=== PATIENT | male | born 1960 | race Caucasian/White ===

== ENCOUNTER 2018-01-24 18:41 | Emergency (ER) | payer MEDICAID ==
[2018-01-24] MEDS ORDERED: ASPIRIN 81 MG CHEWABLE TAB PO ONE (19:07)
--- NOTE | 2018-01-24 19:09 | CPEKG ---
Heart Rate: 57 RR Interval: 1053 P-R Interval: 144 QRSD Interval: 74 QT Interval: 420 QTC Interval: 409 P Chilo: 43 QRS Chilo: 69 T Wave Chilo: 44 EKG Severity - NORMAL ECG - EKG Impression: SINUS RHYTHM EKG Impression: Normal EKG, no acute findings. Electronically Signed By: Gracia Arredondo 24-Jan-2018 20:08:07
--- NOTE | 2018-01-24 19:37 | EDPHY ---
H & P Time Seen by Provider: 01/24/18 18:49 HPI/ROS: CHIEF COMPLAINT: Chest pain HISTORY OF PRESENT ILLNESS: Patient states he had chest pain which he 1st felt around 10 30 this morning. He was in bed reading at the time when it started. The chest pain was to the left chest and is described as a squeezing sensation. It lasted 3-4 seconds, it was sudden in onset, and it was most intense the 1st time he experience it. He states that was about 5 to 6/10 when it 1st started. He states over the course of the rest of the day it came back 3 times "at least". Each time with similar in that they were sudden, sharp, resolved after a few seconds. He states last time he felt this was 45 min ago. He denies any shortness of breath, nausea, vomiting, diaphoresis. There is no radiation of the pain. He has had no exercise intolerance. He has had no leg swelling. Pain was not associated with exertion. He has had no dizziness or syncope. REVIEW OF SYSTEMS: Constitutional: No fever, no chills. Eyes: No discharge. ENT: No sore throat. Cardiovascular: No chest pain, no palpitations. Respiratory: No cough, no shortness of breath. Gastrointestinal: No abdominal pain, no vomiting. Genitourinary: No dysuria. Musculoskeletal: No back pain. Skin: No rashes. Neurological: No headache. General Appearance: Alert, no distress. Eyes: Pupils equal and round no pallor or injection. ENT, Mouth: Mucous membranes moist. Respiratory: There are no retractions, lungs are clear to auscultation. Cardiovascular: Regular rate and rhythm. Normal femoral pulses. Gastrointestinal: Abdomen is soft and nontender, no masses, bowel sounds normal. Neurological: No neurologic deficits, awake alert. Skin: Warm and dry, no rashes. Musculoskeletal: Neck is supple nontender. Extremities are symmetrical, full range of motion, no edema. Psychiatric: Patient is oriented X 3, there is no agitation. Medical/surgical history: Epilepsy, hernia surgery. Social history: No smoking, no alcohol. No family history of coronary artery disease. Smoking Status: Never smoked Constitutional: Initial Vital Signs Temperature (C) 36.7 C 01/24/18 18:49 Heart Rate 65 01/24/18 18:49 Respiratory Rate 18 01/24/18 18:49 Blood Pressure 107/70 07/08/18 18:49 O2 Sat (%) 93 01/24/18 18:49 O2 Delivery Mode Room Air Allergies/Adverse Reactions: No Known Allergies Allergy (Verified 01/24/18 18:52) Home Medications: Medication Instructions Recorded Tegretol 01/17/15 Medical Decision Making - Diagnostics EKG Interpretation: Normal EKG see trace master for details Imaging Results: Imaging Impressions Chest X-Ray 01/24/18 19:07 Impression: 1. No active cardiopulmonary disease seen. Imaging: I viewed and interpreted images myself ED Course/Re-evaluation: 8:10 p.m. Re-evaluation patient comfortable, no chest pain. Discussed heart score and rule out in shared decision making conversation. Patient agreeable to stay in ED for repeat troponin. Also discussed the importance of prompt follow-up. Differential Diagnosis: Differential diagnosis includes but is not limited to acute coronary syndrome, pneumonia, musculoskeletal chest pain, pleurisy. After evaluation unclear cause of patient's intermittent brief chest pain. No evidence of pneumonia, hypoxia, no risk factors for pulmonary embolism, asymptomatic during his visit in the emergency department. Patient with heart score of 1 and low risk. Serial troponins negative. EKG unremarkable. Patient understands the importance of follow-up after initial evaluation in the emergency department. Discussed return precautions in detail. Stable for discharge. - Data Points Laboratory Results: 01/24/18 01/24/18 19:29 19:28 POC Sodium 139 mEq/L mEq/L (135-145) POC Potassium 3.9 mEq/L mEq/L (3.3-5.0) POC Chloride 100.0 mEq/L mEq/L (97-110) POC Total CO2 27 mEq/L mEq/L (22-31) POC BUN 8 mg/dL mg/dL (7-23) POC Creatinine 1.3 mg/dL mg/dL (0.7-1.3) POC Glucose 86 mg/dL mg/dL (70-100) POC Calcium 9.3 mg/dL mg/dL (8.5-10.4) POC Total Bilirubin 0.7 mg/dL mg/dL (0.1-1.4) POC AST 22 IU/L IU/L (17-59) POC ALT 17 IU/L L IU/L (21-72) POC Alk Phosphatase 56 IU/L IU/L (38-126) POC Troponin I 0.00 ng/mL ng/mL (0.00-0.08) POC Total Protein 6.5 g/dL g/dL (6.3-8.2) POC Albumin 3.8 g/dL g/dL (3.5-5.0) Medications Given: Discontinued Medications Aspirin (Aspirin) 324 mg PO EDNOW ONE Stop: 01/24/18 19:08 Last Admin: 01/24/18 19:22 Dose: 324 mg Point of Care Test Results: CBC CBC Collection Date 01/24/18 CBC Collection Time 19:07 WBC 10.4 RBC 4.66 HGB 15.6 HCT 45.2 PLT 277 Neut # 6.7 Neut 65.0 LYMPH # 2.9 LYMPH 27.6 Other WBC # 0.8 Other WBC 7.4 MCV 97.0 Chemistry 01/24/18 01/24/18 19:29 19:28 POC Sodium 139 mEq/L mEq/L (135-145) POC Potassium 3.9 mEq/L mEq/L (3.3-5.0) POC Chloride 100.0 mEq/L mEq/L (97-110) POC Total CO2 27 mEq/L mEq/L (22-31) POC BUN 8 mg/dL mg/dL (7-23) POC Creatinine 1.3 mg/dL mg/dL (0.7-1.3) POC Glucose 86 mg/dL mg/dL (70-100) POC Calcium 9.3 mg/dL mg/dL (8.5-10.4) POC Total Bilirubin 0.7 mg/dL mg/dL (0.1-1.4) POC AST 22 IU/L IU/L (17-59) POC ALT 17 IU/L L IU/L (21-72) POC Alk Phosphatase 56 IU/L IU/L (38-126) POC Troponin I 0.00 ng/mL ng/mL (0.00-0.08) POC Total Protein 6.5 g/dL g/dL (6.3-8.2) POC Albumin 3.8 g/dL g/dL (3.5-5.0) Departure - Departure Clinical Impression: Chest pain Qualifiers: Chest pain type: unspecified Qualified Code(s): R07.9 - Chest pain, unspecified Condition: Good Instructions: Chest Pain (ED) Additional Instructions: Follow-up with urinary care physician tomorrow as discussed. I recommend that you get a stress test arranged through [facility]. Return to the emergency department if your chest pain gets significantly worse or if you develop other new or concerning symptoms. Referrals: NONE *PRIMARY CARE P,. [Primary Care Provider] - As per Instructions
[2018-01-24 22:14] VITALS: BP 121/85
== END 2018-01-24 22:30 | disposition home or self-care (01) ==
LOC: CED 18:41
DX: R07.9 Chest pain, unspecified (principal)
CPT/HCPCS: 71045-PO; 80053-PO; 84484-PO